=== PATIENT | male | born 2000 | race Caucasian/White ===

== ENCOUNTER 2022-03-24 15:08 | Emergency (ER) | payer MEDICAID ==
[~2022-03-24] VITALS: Ht 172.7 cm; Wt 100.0 kg
[2022-03-24 15:34] VITALS: BP 132/87
[2022-03-24 19:13] LABS: *AMPHETAMINES SCREEN URINE NEGATIVE (NEGATIVE); *BARBITURATES SCREEN URINE NEGATIVE (NEGATIVE); *BENZODIAZEPINES SCREEN URINE NEGATIVE (NEGATIVE); *COCAINE SCREEN URINE NEGATIVE (NEGATIVE); CANNABINOID URINE SCREEN NEGATIVE (NEGATIVE); METHADONE URINE SCREEN NEGATIVE (NEGATIVE); OPIATES URINE SCREEN NEGATIVE (NEGATIVE); PHENCYCLIDINE URINE SCREEN NEGATIVE (NEGATIVE)
== END 2022-03-24 20:03 | disposition home or self-care (01) ==
LOC: ER 15:08
DX: T65.94XA Toxic effect of unspecified substance, undetermined, initial encounter (principal); Y92.512 Supermarket, store or market as the place of occurrence of the external cause
CPT/HCPCS: 36415; 80305; 80320; 99283; G0480

== ENCOUNTER 2022-04-19 15:45 | Emergency (ER) | payer SELFPAY ==
[~2022-04-19] VITALS: Ht 170.2 cm; Wt 91.0 kg
[2022-04-19 16:10] VITALS: BP 136/93
[2022-04-19] MEDS ORDERED: ONDANSETRON 4MG ODT PO ONE (20:30)
== END 2022-04-19 21:09 | disposition left against medical advice (07) ==
LOC: ER 15:45
DX: J06.9 Acute upper respiratory infection, unspecified (principal); Z20.822 Contact with and (suspected) exposure to COVID-19
CPT/HCPCS: 87426; 87804; 99283; C9803; Q0162

== ENCOUNTER 2022-04-26 22:06 | Emergency (ER) | payer SELFPAY ==
[~2022-04-26] VITALS: Ht 170.2 cm; Wt 96.1 kg
[2022-04-26 22:07] VITALS: BP 148/99
== END 2022-04-26 22:54 | disposition home or self-care (01) ==
LOC: ER 22:06
DX: F15.929 Other stimulant use, unspecified with intoxication, unspecified (principal)
CPT/HCPCS: 99281